=== PATIENT | female | born 1930 | race Caucasian/White ===

== ENCOUNTER 2017-04-26 14:59 | Emergency (ER) | payer MEDICARE, BC, OTHER ==
[~2017-04-26] VITALS: Ht 147.3 cm; Wt 43.1 kg
[~2017-04-26 14:59] MED LIST: ALBU90OI61 INH; AMLO5 PO; AMOCLA875 PO; ASPI325 PO; ASPI81CH PO; ATOR20 PO; AZIT250 PO; Ativan1 MG PO; BUDE32NIS; CALCAVITD PO; CHOL10002 PO; CIPR500 PO; CLON1; CLOP75 PO; CONESTTC PV; CRANBERRY TAB; CYAN500 PO; FEXO180 PO; FISH1000 PO; GLUCHON PO; GUAI600T33 PO; LEVFLO500 PO; LEVSOD75 PO; LORA.5 PO; LOSA25 PO; METO50 PO; MSM; MULVITMIND PO; MULVITMINF PO; NITR.4SL SL; Norvasc2.5 MG PO; OXYB5 PO; PHENA200 PO; PROBIOTIC; PROBIOTIC1 EAC1 PO; SACC250C PO; UBID100 PO; VITAMIN D-32000 UNI1 PO; [UNRECOGNIZED DRUG - OTHER]; [UNRECOGNIZED DRUG - OTHER]; [UNRECOGNIZED DRUG - OTHER]
[2017-04-26 15:48] LABS: BASOPHILS ABSOLUTE AUTO 0.03 K/mm3 (0.00-0.23); BASOPHILS PERCENT AUTO 0 % (0-2); EOSINOPHILS ABSOLUTE AUTO 0.03 K/mm3 (0.00-0.68); EOSINOPHILS PERCENT AUTO 0 % (0-6); Hematocrit 45.5 % (33.0-51.0); Hemoglobin 15.3 g/dL (11.5-16.0); IMMATURE GRAN ABSOLUTE AUTO 0.06 K/mm3 (0.00-0.10); IMMATURE GRAN PERCENT AUTO 0 % (0-1); LYMPHOCYTES ABSOLUTE AUTO 0.35 K/mm3 (0.84-5.20); LYMPHOCYTES PERCENT AUTO 3 % (21-46); MONOCYTES ABSOLUTE AUTO 0.53 K/mm3 (0.16-1.47); MONOCYTES PERCENT AUTO 4 % (4-13); Mean Corpuscular HGB 30.7 pg (26.0-34.0); Mean Corpuscular HGB Conc 33.6 g/dL (31.5-36.5); Mean Corpuscular Volume 91 fL (80-100); Mean Platelet Volume 10.4 fL (9.1-12.4); NEUTROPHILS ABSOLUTE AUTO 12.76 K/mm3 (1.96-9.15); NEUTROPHILS PERCENT AUTO 93 % (41-73); Platelet Count 225 K/mm3 (150-400); RDW Coefficient Variation 12.9 % (11.7-14.2); RDW Standard Deviation 42.9 fL (35.1-46.3); Red Blood Cell Count 4.99 M/mm3 (3.80-5.20); White Blood Cell Count 13.76 K/mm3 (4.00-11.30)
[2017-04-26 16:16] LABS: Alanine Aminotransfer (ALT/SGP 55 U/L (12-78); Albumin, Blood 3.5 g/dL (3.4-5.0); Albumin/Globulin Ratio 1.2 (0.8-1.8); Alk Phos 76 U/L (50-136); Anion Gap 7 mmol/L (6-16); Aspartate Aminotrans (AST/SGOT 37 U/L (12-37); Bilirubin, Total 0.8 mg/dL (0.1-1.0); Blood Urea Nitrogen 24 mg/dL (8-24); Bun/Creatinine Ratio 49.3 (12.0-20.0); CO2, Blood 26 mmol/L (21-32); Calcium, Blood 8.2 mg/dL (8.5-10.1); Chloride, Blood 104 mmol/L (98-108); Creatinine, Blood 0.49 mg/dL (0.40-1.00); Globulin, Blood 2.9 g/dL (2.2-4.0); Glomerular Filtration Rate >60 (60-); Glucose, Blood 125 mg/dL (70-99); Potassium, Blood 4.4 mmol/L (3.5-5.5); Sodium, Blood 137 mmol/L (136-145); Total Protein, Blood 6.4 g/dL (6.4-8.2)
[2017-04-26 18:54] LABS: Source, Urine Clean Catch
[2017-04-26 18:58] LABS: Bilirubin, Urine Neg (Neg); Blood, Urine 2+ (Neg); Glucose Qualitative, Urine Neg (Neg); Ketones, Urine Neg (Neg); Leukocyte Esterase, Urine Neg (Neg); Nitrite, Urine Neg (Neg); Protein, Urine Neg (Neg); Urobilinogen, Urine NORM (Normal)
[2017-04-26 19:04] LABS: Appearance, Urine Clear (Clear); Color, Urine Pale Yellow (P-Yellow)
[2017-04-26 19:08] LABS: Bacteria Not Seen /hpf; Red Blood Cells, Urine Not Seen /hpf (0-2); Squamous Epithelial Cells Not Seen /hpf (Few); White Blood Cells, Urine Not Seen /hpf (0-5)
[2017-04-26] MEDS ORDERED: Zofran Odt4 MG SL (19:46)
== END 2017-04-26 20:17 | disposition home or self-care (01) ==
LOC: ER 14:59
PROVIDERS: Emergency Medicine
DX: R11.2 Nausea with vomiting, unspecified (principal); E03.9 Hypothyroidism, unspecified; I10 Essential (primary) hypertension; F41.9 Anxiety disorder, unspecified; I25.10 Atherosclerotic heart disease of native coronary artery without angina pectoris; I25.2 Old myocardial infarction; Z88.2 Allergy status to sulfonamides; Z88.8 Allergy status to other drugs, medicaments and biological substances; Z79.899 Other long term (current) drug therapy; Z79.82 Long term (current) use of aspirin; Z90.49 Acquired absence of other specified parts of digestive tract; Z90.710 Acquired absence of both cervix and uterus
CPT/HCPCS: 36415; 74176; 80053; 81001; 83690; 85025; 93005; 93010; 96361; 96374; 99284; J2405; J7030

== ENCOUNTER 2017-12-17 18:46 | Emergency (ER) | payer MEDICARE, BC, OTHER ==
[~2017-12-17] VITALS: Ht 147.3 cm; Wt 43.1 kg
[~2017-12-17 18:46] MED LIST changes: +Zofran Odt4 MG SL
== END 2017-12-17 22:08 | disposition home or self-care (01) ==
LOC: ER 18:46
DX: S05.91XA Unspecified injury of right eye and orbit, initial encounter (principal); I25.2 Old myocardial infarction; E03.9 Hypothyroidism, unspecified; F41.9 Anxiety disorder, unspecified; Z79.899 Other long term (current) drug therapy; Z79.82 Long term (current) use of aspirin; W22.8XXA Striking against or struck by other objects, initial encounter; Y92.89 Other specified places as the place of occurrence of the external cause
CPT/HCPCS: 70480; 96365; 96367; 99284-25; J0713; J3370

== ENCOUNTER 2017-12-19 21:15 | Emergency (ER) | payer MEDICARE, BC, OTHER ==
[~2017-12-19] VITALS: Ht 160 cm; Wt 59.0 kg
[2017-12-19] MEDS ORDERED: ERYT1OIN BOTHEYES (23:52)
[2017-12-19] MEDS ORDERED: CEPH500 PO (23:52)
== END 2017-12-20 00:33 | disposition home or self-care (01) ==
LOC: ER 21:15
DX: S05.31XD Ocular laceration without prolapse or loss of intraocular tissue, right eye, subsequent encounter (principal); H10.9 Unspecified conjunctivitis; H05.011 Cellulitis of right orbit; W22.8XXD Striking against or struck by other objects, subsequent encounter; Z88.2 Allergy status to sulfonamides; Z88.8 Allergy status to other drugs, medicaments and biological substances; Z79.899 Other long term (current) drug therapy; Z79.82 Long term (current) use of aspirin; I10 Essential (primary) hypertension; F41.9 Anxiety disorder, unspecified; I25.2 Old myocardial infarction
CPT/HCPCS: 99282

== ENCOUNTER → 2018-09-20 | Outpatient (CLI) | payer MEDICARE, BC, OTHER ==
[~2018-09-20] MED LIST changes: +CEPH500 PO; +ERYT1OIN BOTHEYES
== END | disposition home or self-care (01) ==
LOC: LAB SHORT 14:01 → PLD 14:01
DX: L30.9 Dermatitis, unspecified (principal); L98.8 Other specified disorders of the skin and subcutaneous tissue; L50.9 Urticaria, unspecified
CPT/HCPCS: 88305; 88312

== ENCOUNTER 2019-01-11 00:58 | Observation (INO) | payer MEDICARE, BC, OTHER ==
[~2019-01-11] VITALS: Ht 152.4 cm; Wt 41.6 kg
[2019-01-11 01:46] LABS: Source, Urine Clean Catch
[2019-01-11 01:53] LABS: Bilirubin, Urine Neg (Neg); Blood, Urine 1+ (Neg); Glucose Qualitative, Urine Neg (Neg); Ketones, Urine Neg (Neg); Leukocyte Esterase, Urine 2+ (Neg); Nitrite, Urine Neg (Neg); Protein, Urine 2+ (Neg); Urobilinogen, Urine NORM (Normal)
[2019-01-11 01:56] LABS: BASOPHILS ABSOLUTE AUTO 0.04 K/mm3 (0.00-0.23); BASOPHILS PERCENT AUTO 1 % (0-2); EOSINOPHILS ABSOLUTE AUTO 0.13 K/mm3 (0.00-0.68); EOSINOPHILS PERCENT AUTO 2 % (0-6); Hematocrit 45.9 % (33.0-51.0); Hemoglobin 15.5 g/dL (11.5-16.0); IMMATURE GRAN ABSOLUTE AUTO 0.02 K/mm3 (0.00-0.10); IMMATURE GRAN PERCENT AUTO 0 % (0-1); LYMPHOCYTES ABSOLUTE AUTO 1.53 K/mm3 (0.84-5.20); LYMPHOCYTES PERCENT AUTO 20 % (21-46); MONOCYTES ABSOLUTE AUTO 0.65 K/mm3 (0.16-1.47); MONOCYTES PERCENT AUTO 8 % (4-13); Mean Corpuscular HGB 31.1 pg (26.0-34.0); Mean Corpuscular HGB Conc 33.8 g/dL (31.5-36.5); Mean Corpuscular Volume 92 fL (80-100); Mean Platelet Volume 10.3 fL (9.1-12.4); NEUTROPHILS ABSOLUTE AUTO 5.49 K/mm3 (1.96-9.15); NEUTROPHILS PERCENT AUTO 70 % (41-73); Platelet Count 240 K/mm3 (150-400); RDW Coefficient Variation 13.1 % (11.7-14.2); RDW Standard Deviation 43.9 fL (35.1-46.3); Red Blood Cell Count 4.99 M/mm3 (3.80-5.20); White Blood Cell Count 7.86 K/mm3 (4.00-11.30)
[2019-01-11 02:12] LABS: Alanine Aminotransfer (ALT/SGP 65 U/L (12-78); Albumin, Blood 3.7 g/dL (3.4-5.0); Albumin/Globulin Ratio 1.2 (0.8-1.8); Alk Phos 73 U/L (50-136); Anion Gap 6 mmol/L (6-16); Aspartate Aminotrans (AST/SGOT 38 U/L (12-37); Bilirubin, Total 0.4 mg/dL (0.1-1.0); Blood Urea Nitrogen 31 mg/dL (8-24); Bun/Creatinine Ratio 45.6 (12.0-20.0); CO2, Blood 27 mmol/L (21-32); Calcium, Blood 8.9 mg/dL (8.5-10.1); Chloride, Blood 108 mmol/L (98-108); Creatinine, Blood 0.68 mg/dL (0.40-1.00); Globulin, Blood 3.2 g/dL (2.2-4.0); Glomerular Filtration Rate >60 (60-); Glucose, Blood 105 mg/dL (70-99); Potassium, Blood 4.2 mmol/L (3.5-5.5); Sodium, Blood 141 mmol/L (136-145); Total Protein, Blood 6.9 g/dL (6.4-8.2); Troponin I <0.015 ng/mL (0.000-0.040)
[2019-01-11 02:16] LABS: Appearance, Urine Clear (Clear); Color, Urine Yellow (P-Yellow)
[2019-01-11 02:18] LABS: Bacteria Few /hpf; Squamous Epithelial Cells Few /hpf (Few)
--- NOTE | 2019-01-11 04:55 | NUR ---
ADMISSION NOTE PT ARRIVED TO UNIT VIA STRETCHER. AMBULATED INDEPENDENTLY TO BED. DENIES ANY DIZZINESS DURING AMBULATION. PROVIDED WITH JELL-O AND CRACKERS. ADMISSION COMPLETE. ASSUMING CARE OF PT.
[2019-01-11 11:42] LABS: CPK Creatine Kinase 83 U/L (26-193); Troponin I <0.015 ng/mL (0.000-0.040)
--- NOTE | 2019-01-11 14:26 | NUR ---
PT ALERT AND ORIENTED THROUGHOUT THIS SHIFT. PT DISCHARGED TO HOME WITH AND SON. PT AMBULATING IN ROOM DURING THIS SHIFT. PT STATES UNDERSTANDING OF DISCHARGE INSTRUCTIONS. PT BELONGINGS WITH PT UPON DISCHARGE. PT TO VEHICLE VIA WHEELCHAIR BY SHERIE RIOS.
== END 2019-01-11 12:58 | disposition home or self-care (01) ==
LOC: ER 00:58 → MEDS 00:59 → ENPENDDIS 10:55 → MEDS 12:58
PROVIDERS: Emergency Medicine; ADMIT Internal Medicine
DX: R55 Syncope and collapse (principal); I16.0 Hypertensive urgency; M54.9 Dorsalgia, unspecified; I25.10 Atherosclerotic heart disease of native coronary artery without angina pectoris; I25.2 Old myocardial infarction; I10 Essential (primary) hypertension; E03.9 Hypothyroidism, unspecified; Z88.8 Allergy status to other drugs, medicaments and biological substances; Z91.09 Other allergy status, other than to drugs and biological substances; Z88.2 Allergy status to sulfonamides; Z79.899 Other long term (current) drug therapy; Z79.82 Long term (current) use of aspirin; Z86.010 Personal history of colon polyps; Z87.01 Personal history of pneumonia (recurrent)
CPT/HCPCS: 36415; 71045; 80053; 81001; 82550; 84439; 84443; 84484; 85025; 87086; 93005; 93010; 96372; 96374; 99285-25; G0378; J0696; J1650; J7030

== ENCOUNTER 2019-06-04 08:16 | Emergency (ER) | payer MEDICARE, BC, OTHER ==
[~2019-06-04] VITALS: Ht 149.9 cm; Wt 61.2 kg
[2019-06-04 09:16] LABS: BASOPHILS ABSOLUTE AUTO 0.03 K/mm3 (0.00-0.23); BASOPHILS PERCENT AUTO 0 % (0-2); EOSINOPHILS ABSOLUTE AUTO 0.05 K/mm3 (0.00-0.68); EOSINOPHILS PERCENT AUTO 1 % (0-6); Hematocrit 45.2 % (33.0-51.0); Hemoglobin 14.9 g/dL (11.5-16.0); IMMATURE GRAN ABSOLUTE AUTO 0.02 K/mm3 (0.00-0.10); IMMATURE GRAN PERCENT AUTO 0 % (0-1); LYMPHOCYTES ABSOLUTE AUTO 0.85 K/mm3 (0.84-5.20); LYMPHOCYTES PERCENT AUTO 11 % (21-46); MONOCYTES ABSOLUTE AUTO 0.99 K/mm3 (0.16-1.47); MONOCYTES PERCENT AUTO 13 % (4-13); Mean Corpuscular HGB 31.1 pg (26.0-34.0); Mean Corpuscular Volume 94 fL (80-100); Mean Platelet Volume 10.5 fL (9.1-12.4); NEUTROPHILS ABSOLUTE AUTO 5.63 K/mm3 (1.96-9.15); NEUTROPHILS PERCENT AUTO 74 % (41-73); Platelet Count 202 K/mm3 (150-400); RDW Standard Deviation 45.1 fL (35.1-46.3); Red Blood Cell Count 4.79 M/mm3 (3.80-5.20); White Blood Cell Count 7.57 K/mm3 (4.00-11.30)
[2019-06-04 09:37] LABS: Alanine Aminotransfer (ALT/SGP 73 U/L (12-78); Albumin, Blood 3.7 g/dL (3.4-5.0); Albumin/Globulin Ratio 1.2 (0.8-1.8); Alk Phos 79 U/L (50-136); Anion Gap 3 mmol/L (6-16); Aspartate Aminotrans (AST/SGOT 43 U/L (12-37); Bilirubin, Total 0.5 mg/dL (0.1-1.0); Blood Urea Nitrogen 14 mg/dL (8-24); Bun/Creatinine Ratio 38.6 (12.0-20.0); CO2, Blood 27 mmol/L (21-32); Calcium, Blood 8.6 mg/dL (8.5-10.1); Chloride, Blood 108 mmol/L (98-108); Creatinine, Blood 0.36 mg/dL (0.40-1.00); Globulin, Blood 3.1 g/dL (2.2-4.0); Glomerular Filtration Rate >60 (60-); Glucose, Blood 102 mg/dL (70-99); Potassium, Blood 4.2 mmol/L (3.5-5.5); Sodium, Blood 138 mmol/L (136-145); Total Protein, Blood 6.8 g/dL (6.4-8.2); Troponin I <0.015 ng/mL (0.000-0.040)
[2019-06-04 09:45] LABS: Source, Urine Clean Catch
[2019-06-04] MEDS ORDERED: NP THYROID60 MG PO (09:48)
[2019-06-04] MEDS ORDERED: LOSARTAN POT TAB 50M (09:49)
[2019-06-04 09:51] LABS: Appearance, Urine Clear (Clear); Bilirubin, Urine Neg (Neg); Blood, Urine Neg (Neg); Color, Urine Yellow (P-Yellow); Glucose Qualitative, Urine Neg (Neg); Ketones, Urine Neg (Neg); Leukocyte Esterase, Urine Neg (Neg); Nitrite, Urine Neg (Neg); Protein, Urine 2+ (Neg); Urobilinogen, Urine NORM (Normal)
[2019-06-04 10:02] LABS: Influenza A Negative (NEGATIVE); Influenza B Negative (NEGATIVE)
[2019-06-04 10:04] LABS: Bacteria Rare /hpf; Red Blood Cells, Urine 0-2 /hpf (0-2); Squamous Epithelial Cells Rare /hpf (Few); White Blood Cells, Urine 0-2 /hpf (0-5)
[2019-06-04] MEDS ORDERED: Tussin Dm Clea118 ML PO (10:59)
[2019-06-04] MEDS ORDERED: TYLECOD3 PO (10:59)
[2019-06-05] MEDS ORDERED: Augmentin 500-1 EACH PO (20:34)
[2019-06-05] MEDS ORDERED: AMOCLA400S PO (21:15)
== END 2019-06-04 11:20 | disposition home or self-care (01) ==
LOC: ER 08:16
PROVIDERS: Emergency Medicine; Physician Assistant
DX: J02.9 Acute pharyngitis, unspecified (principal); E03.9 Hypothyroidism, unspecified; I10 Essential (primary) hypertension; F41.9 Anxiety disorder, unspecified; Z88.2 Allergy status to sulfonamides; Z79.899 Other long term (current) drug therapy
CPT/HCPCS: 36415; 71046; 80053; 81001; 84484; 85025; 87804; 93005; 93010; 99284-25

== ENCOUNTER 2019-06-05 19:08 | Inpatient (IN) | payer MEDICARE, BC, OTHER ==
[~2019-06-05] VITALS: Ht 149.9 cm; Wt 40.8 kg
[~2019-06-05 19:08] MED LIST changes: +LOSARTAN POT TAB 50M; +NP THYROID60 MG PO; +TYLECOD3 PO; +Tussin Dm Clea118 ML PO
[2019-06-05 19:54] LABS: BASOPHILS ABSOLUTE AUTO 0.03 K/mm3 (0.00-0.23); BASOPHILS PERCENT AUTO 0 % (0-2); EOSINOPHILS ABSOLUTE AUTO 0.01 K/mm3 (0.00-0.68); EOSINOPHILS PERCENT AUTO 0 % (0-6); Hematocrit 46.6 % (33.0-51.0); Hemoglobin 15.6 g/dL (11.5-16.0); IMMATURE GRAN ABSOLUTE AUTO 0.04 K/mm3 (0.00-0.10); IMMATURE GRAN PERCENT AUTO 1 % (0-1); LYMPHOCYTES ABSOLUTE AUTO 0.59 K/mm3 (0.84-5.20); LYMPHOCYTES PERCENT AUTO 7 % (21-46); MONOCYTES ABSOLUTE AUTO 1.09 K/mm3 (0.16-1.47); MONOCYTES PERCENT AUTO 13 % (4-13); Mean Corpuscular HGB Conc 33.5 g/dL (31.5-36.5); Mean Corpuscular Volume 93 fL (80-100); Mean Platelet Volume 10.4 fL (9.1-12.4); NEUTROPHILS ABSOLUTE AUTO 6.84 K/mm3 (1.96-9.15); NEUTROPHILS PERCENT AUTO 80 % (41-73); Platelet Count 190 K/mm3 (150-400); RDW Standard Deviation 44.4 fL (35.1-46.3); Red Blood Cell Count 5.03 M/mm3 (3.80-5.20)
[2019-06-05 20:12] LABS: Anion Gap 7 mmol/L (6-16); Blood Urea Nitrogen 20 mg/dL (8-24); Bun/Creatinine Ratio 47.4 (12.0-20.0); CO2, Blood 27 mmol/L (21-32); Chloride, Blood 104 mmol/L (98-108); Creatinine, Blood 0.42 mg/dL (0.40-1.00); Glomerular Filtration Rate >60 (60-); Glucose, Blood 167 mg/dL (70-99); Potassium, Blood 4.1 mmol/L (3.5-5.5); Sodium, Blood 138 mmol/L (136-145)
[2019-06-05] MEDS ORDERED: Augmentin 500-1 EACH PO (20:34)
[2019-06-05] MEDS ORDERED: AMOCLA400S PO (21:15)
[2019-06-06 05:02] LABS: BASOPHILS ABSOLUTE AUTO 0.01 K/mm3 (0.00-0.23); BASOPHILS PERCENT AUTO 0 % (0-2); EOSINOPHILS PERCENT AUTO 0 % (0-6); Hematocrit 42.9 % (33.0-51.0); Hemoglobin 14.1 g/dL (11.5-16.0); IMMATURE GRAN ABSOLUTE AUTO 0.01 K/mm3 (0.00-0.10); IMMATURE GRAN PERCENT AUTO 0 % (0-1); LYMPHOCYTES ABSOLUTE AUTO 0.28 K/mm3 (0.84-5.20); LYMPHOCYTES PERCENT AUTO 5 % (21-46); MONOCYTES ABSOLUTE AUTO 0.17 K/mm3 (0.16-1.47); MONOCYTES PERCENT AUTO 3 % (4-13); Mean Corpuscular HGB 30.7 pg (26.0-34.0); Mean Corpuscular HGB Conc 32.9 g/dL (31.5-36.5); Mean Corpuscular Volume 93 fL (80-100); Mean Platelet Volume 10.5 fL (9.1-12.4); NEUTROPHILS ABSOLUTE AUTO 4.97 K/mm3 (1.96-9.15); NEUTROPHILS PERCENT AUTO 91 % (41-73); Platelet Count 163 K/mm3 (150-400); RDW Standard Deviation 44.8 fL (35.1-46.3); White Blood Cell Count 5.44 K/mm3 (4.00-11.30)
[2019-06-06 05:22] LABS: Anion Gap 5 mmol/L (6-16); Blood Urea Nitrogen 18 mg/dL (8-24); Bun/Creatinine Ratio 41.3 (12.0-20.0); CO2, Blood 29 mmol/L (21-32); Calcium, Blood 8.6 mg/dL (8.5-10.1); Chloride, Blood 106 mmol/L (98-108); Creatinine, Blood 0.44 mg/dL (0.40-1.00); Glomerular Filtration Rate >60 (60-); Glucose, Blood 142 mg/dL (70-99); Sodium, Blood 140 mmol/L (136-145)
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
[2019-06-06] MEDS ORDERED: ALBU90OI INH (16:29)
[2019-06-06] MEDS ORDERED: Zantac150 MG PO (16:30)
--- NOTE | 2019-06-06 19:33 | NUR ---
SHIFT SUMMARY: NO ACUTE CHANGES TO REPORT THIS SHIFT. PT A&O; [place]; CALM AND COOPERATIVE WITH CARE. MEDICATED FOR THROAT PAIN PER EMAR. TELE IN PLACE; SR @ 85 PER ON CALL DURING MORNING ASSESSMENT.O2 @ 2L; PT ON ROOM AIR AT HOME; HX COPD. PT UP TO BATHROOM c 1-ASSIST. PO STEROIDS CONTINUING. REPORT GIVEN TO ONCOMING RN.
--- NOTE | 2019-06-07 04:08 | NUR ---
SUMMARY PT HAD NO NEW ISSUES NOTED. PT IS CAREFUL WITH SWALLOWING HER MEDS. PT HAS NOT HAD A BM THIS SHIFT. PT HAD NO EPISODES OF SOB. PT HAS BEEN VOIDING URINE T/O SHIFT. PT HAS NOT SLEPT MUCH THIS SHIFT. PT CURRENTLY RESTING AND BREATHING EASY. CALL LIGHT IN REACH. TM
[2019-06-07 04:58] LABS: Hematocrit 47.6 % (33.0-51.0); Hemoglobin 15.7 g/dL (11.5-16.0); Mean Corpuscular HGB 30.7 pg (26.0-34.0); Mean Corpuscular Volume 93 fL (80-100); Mean Platelet Volume 10.5 fL (9.1-12.4); Platelet Count 188 K/mm3 (150-400); RDW Coefficient Variation 12.9 % (11.7-14.2); RDW Standard Deviation 44.3 fL (35.1-46.3); Red Blood Cell Count 5.12 M/mm3 (3.80-5.20); White Blood Cell Count 8.69 K/mm3 (4.00-11.30)
--- NOTE | 2019-06-07 05:04 | NUR ---
PT REPORTS A BM THIS AM. PT IS REQUESTING A ENEMA. PT STATES SHE STILL FEELS "FULL".
[2019-06-07 05:22] LABS: Anion Gap 5 mmol/L (6-16); Blood Urea Nitrogen 19 mg/dL (8-24); Bun/Creatinine Ratio 36.3 (12.0-20.0); CO2, Blood 29 mmol/L (21-32); Calcium, Blood 8.8 mg/dL (8.5-10.1); Chloride, Blood 107 mmol/L (98-108); Creatinine, Blood 0.52 mg/dL (0.40-1.00); Glomerular Filtration Rate >60 (60-); Glucose, Blood 107 mg/dL (70-99); Potassium, Blood 4.1 mmol/L (3.5-5.5); Sodium, Blood 141 mmol/L (136-145)
--- NOTE | 2019-06-07 14:55 | NUR ---
Patient gave student nurse permission for care 06/07/2019.
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
--- NOTE | 2019-06-08 01:42 | NUR ---
PT IS PLEASANT AND COOPERATIVE WITH CARE. AAOX4 RESP E/U ON 2LNC. IN ROOM WITH PT. STEADY GATE. NO COMPLAINTS AT THIS TIME. LAST TELE CHECK NSR RATE 86.
--- NOTE | 2019-06-08 07:32 | NUR ---
SHIFT SUMMARY SEE PREVIOUS NOTE. PT PLEASANT AND COOPERATIVE WITH CARE. NO ACUTE CHANGES OR COMPLAINTS THIS NIGHT. VSS. LAST TELE CHECK AROUND 0600 NSR RATE 81. RESP ARE EVEN AND UNLABORED ON 2L O2. REPORT ON ONCOMING RN.
[2019-06-08] MEDS ORDERED: ALBU2.5V5 PO (11:44)
[2019-06-08] MEDS ORDERED: BENZ100A PO (11:45)
[2019-06-08] MEDS ORDERED: LOSA25 PO (11:45)
[2019-06-08] MEDS ORDERED: AIRDUO RESPICL1 EAC2 INH (11:46)
[2019-06-08] MEDS ORDERED: Flonase 0.05% N16 GM (11:46)
[2019-06-08] MEDS ORDERED: DELTASONE20 MG PO (11:47)
[2019-06-08] MEDS ORDERED: Loratadine10 MG PO (11:48)
--- NOTE | 2019-06-08 13:26 | NUR ---
1230 PT TO DC HOME ON . WENT OVER NEW MEDS WITH SON AND MEDS FAXED TO PHARMACY. HOME O2 EVAL DONE. PT DOC TO FOLLOW UP WITH APPOINTMENT TIME. IV REMOVED, NO SS OF INFECTION NOTED. PT TO BE TAKEN OUT VIA WC.
== END 2019-06-08 14:34 | disposition home or self-care (01) | DRG 189 ==
LOC: ER 19:08 → MEDS 19:09 → ENPENDDIS 06-08 11:00 → MEDS 06-08 14:34
PROVIDERS: Internal Medicine; Physician Assistant; ADMIT Internal Medicine
DX: J96.01 Acute respiratory failure with hypoxia (principal); J44.1 Chronic obstructive pulmonary disease with (acute) exacerbation; R13.10 Dysphagia, unspecified; I10 Essential (primary) hypertension; I25.10 Atherosclerotic heart disease of native coronary artery without angina pectoris; E03.9 Hypothyroidism, unspecified; M62.84 Sarcopenia; Z86.19 Personal history of other infectious and parasitic diseases; K21.9 Gastro-esophageal reflux disease without esophagitis; Z86.73 Personal history of transient ischemic attack (TIA), and cerebral infarction without residual deficits; R54 Age-related physical debility
CPT/HCPCS: 36415; 71046; 80048; 83605; 84443; 85025; 85027; 87040; 87081; 87430; 92610; 93005; 93010; 94640; 94760; 94761; 96361; 96365; 96372; 96375; 99285-25; A9270-GY; C9113; G0378; J0696; J1100; J1650; J2405; J7030; J7512

== ENCOUNTER 2019-09-24 14:02 | Emergency (ER) | payer MEDICARE, BC, OTHER ==
[~2019-09-24] VITALS: Ht 147.3 cm; Wt 40.8 kg
[~2019-09-24 14:02] MED LIST changes: +AIRDUO RESPICL1 EAC2 INH; +ALBU2.5V5 PO; +ALBU90OI INH; +AMOCLA400S PO; +Augmentin 500-1 EACH PO; +BENZ100A PO; +DELTASONE20 MG PO; +Flonase 0.05% N16 GM; +Loratadine10 MG PO; +Zantac150 MG PO
[2019-09-24] MEDS ORDERED: HYDR1TAB94 PO (17:16)
== END 2019-09-24 17:29 | disposition home or self-care (01) ==
LOC: ER 14:02
DX: S52.501A Unspecified fracture of the lower end of right radius, initial encounter for closed fracture (principal); S01.01XA Laceration without foreign body of scalp, initial encounter; I10 Essential (primary) hypertension; F41.9 Anxiety disorder, unspecified; I25.10 Atherosclerotic heart disease of native coronary artery without angina pectoris; E03.9 Hypothyroidism, unspecified; W18.30XA Fall on same level, unspecified, initial encounter
CPT/HCPCS: 70450; 73110; 93005; 93010

== ENCOUNTER → 2019-11-25 | Outpatient (CLI) | payer MEDICARE, BC, OTHER ==
[~2019-11-25] MED LIST changes: +HYDR1TAB94 PO
== END ==
LOC: LAB SHORT 17:32 → LAB 17:32
DX: E03.9 Hypothyroidism, unspecified (principal)
CPT/HCPCS: 84443